=== PATIENT | male | born 1955 | race Caucasian/White ===

== ENCOUNTER → 2023-05-27 | Emergency (ER) | payer MEDICARE, BC ==
[~2023-05-27] VITALS: Ht 180.3 cm; Wt 83.0 kg
[~2023-05-27] MED LIST: IV NORMAL SALINE 1000 ML BAG IV ONE
[2023-05-27 19:58] LABS: BASOPHILS # (AUTO) 0.3 K/UL (0.0-0.2); BASOPHILS % (AUTO) 2.6 % (0.0-2.0); EOSINOPHILS # (AUTO) 0.1 K/uL (0.0-0.7); EOSINOPHILS % (AUTO) 0.9 % (0.0-7.0); HEMATOCRIT 39.9 % (36.7-47.1); HEMOGLOBIN 13.3 g/dL (12.5-16.3); LYMPHOCYTES # (AUTO) 2.2 K/uL (0.8-4.8); LYMPHOCYTES % (AUTO) 22.5 % (20.5-51.5); MEAN CORPUSCULAR HEMOGLOBIN 31.1 uug (23.8-33.4); MEAN CORPUSCULAR HGB CONC 33 g/dL (32.5-36.3); MONOCYTES # (AUTO) 0.7 K/uL (0.1-1.30); MONOCYTES % (AUTO) 7.5 % (0.0-11.0); NEUTROPHILS # (AUTO) 6.6 K/uL (1.8-8.9); NEUTROPHILS % (AUTO) 66.5 % (38.5-71.5); PLATELET COUNT (AUTO) 260 K/uL (152-348); RED BLOOD CELL COUNT(AUTO) 4.29 MIL/uL (4.06-5.63); RED CELL DISTRIBUTION WIDTH 13.7 % (12.1-16.2); WHITE BLOOD COUNT (AUTO) 9.9 K/uL (3.6-10.2)
[2023-05-27 20:06] LABS: DIFFERENTIAL COMMENT 1
[2023-05-27 20:17] LABS: CALCIUM 8.4 mg/dL (8.5-10.1); CARBON DIOXIDE 25 mmol/L (21-32); CHLORIDE 105 mmol/L (98-107); CREATININE 1.4 mg/dL (0.6-1.3); GLUCOSE 122 mg/dL (74-106); POTASSIUM 3.7 mmol/L (3.5-5.1); SODIUM SERUM 143 mmol/L (136-145); UREA NITROGEN, BLOOD 19 mg/dL (7-18)
[2023-05-27 20:25] LABS: ALANINE AMINOTRANSFERASE 24 U/L (16-63); ALBUMIN 3.6 g/dL (3.4-5.0); ALKALINE PHOSPHATASE 63 U/L (50-136); ASPARTATE AMINOTRANSFERASE 20 U/L (15-37); BILIRUBIN,DIRECT 0.1 mg/dL (0.0-0.2); BILIRUBIN,TOTAL 0.4 mg/dL (0.2-1.0); TOTAL PROTEIN, SERUM 6.7 g/dL (6.4-8.2)
[2023-05-27 22:02] VITALS: O2SAT 94
== END | disposition home or self-care (01) ==
LOC: ER 19:38
DX: R55 Syncope and collapse (principal); E86.0 Dehydration
CPT/HCPCS: 99285; 70450; 80076; 80048; 85025; 84484; 36415; 93005; J7040 ×2; A4606; A4663